=== PATIENT | male | born 1970 | race Caucasian/White ===

== ENCOUNTER → 2022-05-31 09:04 | Outpatient (CLI) | payer OTHER, SELFPAY ==
[2022-05-31 10:29] LABS: COVID19 -Nasal RAPID Negative (Negative)
== END ==
PROVIDERS: Visit Provider Surgery
DX: Z20.822 Contact with and (suspected) exposure to COVID-19 (principal); Z01.812 Encounter for preprocedural laboratory examination
CPT/HCPCS: 87635; C9803

== ENCOUNTER 2022-06-01 13:39 | Day surgery (SDC) | payer OTHER, SELFPAY ==
--- NOTE | 2022-06-01 14:37 | PM.HP.1 ---
History of Present Illness History of Present Illness Date Patient Seen: 06/01/22 Time Patient Seen: 14:37 Chief complaint: SDC Narrative: I reviewed the recent note by Dr. Solis no changes. Mild twinge of blood noted on the toilet tissue this morning. Meds Home Medications and Allergies Home Medications Medication Instructions Recorded Confirmed Type levothyroxine 175 mcg tablet 175 mcg PO DAILY 06/01/22 06/01/22 History (Synthroid) lisinopril 10 mg tablet 10 mg PO DAILY 06/01/22 06/01/22 History simvastatin 20 mg tablet 20 mg PO DAILY 06/01/22 06/01/22 History Allergies Allergy/AdvReac Type Severity Reaction Status Date / Time No Known Drug Allergies Allergy Verified 06/01/22 14:36 Review of Systems Review of Systems ROS: Yes All systems reviewed with the patient and are negative except as otherwise documented Exam Const General: cooperative HENMT Head: normal to inspection Eyes General: appearance normal, both eyes and all related structures Neck Neck: normal visual inspection Chest Chest: normal inspection of the chest Resp Effort & Inspection: normal respiratory effort Cardio Rate: regular rate GI Inspection: normal to inspection Skin General: no rashes or lesions noted Neuro General: patient alert and patient awake Extrem General: normal to inspection and no pedal edema Psych Appearance: grossly normal Assessment & Plan Assessment & Plan narrative: 52-year-old male with a history of red blood per rectum last fall. He would a small amount of blood on the toilet tissue this morning. Colon cancer screening with colonoscopy is pursued today. Time Spent With Patient Critical Care time: I spent a total of [] minutes of critical care time on this patient's care today; this time is exclusive of procedural time.
[2022-06-01 14:38] VITALS: BMI 35.7
--- NOTE | 2022-06-01 14:39 | PM.PREOP ---
Pre-operative Note COVID-19 COVID-19 status: Negative Result date/Date tested (Pos, Neg/Pending): 05/31/22 Criteria for continued procedure: Possibility delay results in more complex future surgery or treatment Interval Note History & Physical reviewed/Exam performed by Physician: Yes Changes to H&P: No ASA Class (for procedural sedation): II
[2022-06-01 14:44] VITALS: BP 131/74; PULSE 65; RESP 18; TEMP 36.4; O2SAT 98
[2022-06-01] MEDS: SODIUM CHLORIDE 0.9% 1,000 ML 84 ML IV (14:47)
--- NOTE | 2022-06-01 15:11 | P.OP.COLON_ITS ---
Operative Date/Time/Diagnoses Date of procedure: 06/01/22 Time of procedure: 15:11 Pre-op diagnosis: Rectal bleeding. Indicated for colon cancer screening. Post-op diagnosis: same Procedure & Clinicians Study performed: Colonoscopy Indications: Rectal bleeding colon cancer screening Surgeon: Cesar Laws Procedure Notes SCOAP/Timeout: Done Procedure in detail: After the risks and benefits were explained, written and verbal informed consent was obtained. The patient was brought into the procedure room and placed into the left lateral decubitus position. Please see nurse dusting and brushing machine operator notes for sedation details. Digital rectal examination was accomplished. The scope was introduced into the patient and advanced under direct visualization to the cecum as identified by the appendiceal orifice and ileocecal valve. The scope was slowly withdrawn to carefully examine the mucosa for any defects or lesions. Comprehensive imaging was accomplished throughout the rectum including the dentate line. The colon was decompressed, the scope was then removed from the patient who tolerated the procedure well. Adult colonoscope Bowel prep fair; with copious irrigation and suction this was rendered adequate. Scope withdrawal time: 7 minutes Sedation minutes: 11 Specimen(s): none sent Complications: none Impression: No proctitis. No colitis. No significant polyps mass lesions throughout. Retroflexed views were unremarkable from within the rectum. There was grade 2 internal hemorrhoids. Nothing actively bleeding. Endoscopic diagnosis 1. Grade 2 hemorrhoids 2. Otherwise visually normal colonoscopy to cecum Post-procedure Plan for aftercare: 1. Repeat colonoscopy 10 years. 2. Fiber based bowel regimen for soft regular stools. Disposition: PACU
[2022-06-01 15:28] VITALS: BP 103/56; PULSE 74; RESP 18; TEMP 36.6; O2SAT 95
[2022-06-01 15:34] VITALS: BP 91/53; PULSE 69; RESP 18; O2SAT 97
[2022-06-01 15:39] VITALS: BP 101/55; PULSE 58; RESP 16; O2SAT 96
[2022-06-01 15:41] VITALS: BP 105/53; PULSE 57; RESP 16; TEMP 36.4; O2SAT 97
== END 2022-06-01 16:05 | disposition home or self-care (01) ==
PROVIDERS: Referring Provider Internal Medicine Gastroenterology; Visit Provider Internal Medicine Gastroenterology
PROC: 0DJD8ZZ Inspection of Lower Intestinal Tract, Via Natural or Artificial Opening Endoscopic (ICD-10-PCS; CPT 45378; principal; 2022-06-01 15:00)
DX: Z12.11 Encounter for screening for malignant neoplasm of colon (principal); I10 Essential (primary) hypertension; E78.2 Mixed hyperlipidemia; E03.9 Hypothyroidism, unspecified; K64.1 Second degree hemorrhoids
CPT/HCPCS: 45378; J2704